=== PATIENT | female | born 1945 | race Caucasian/White ===

== ENCOUNTER 2023-03-05 09:06 | Emergency (ER) | payer MEDICARE, SELFPAY ==
[2023-03-05] VITALS (41 sets, daily range): BP systolic 128–183; BP diastolic 50–140; PULSE 70–83; RESP 12–27; TEMP 36.9; O2SAT 84–98; BMI 25.4
--- NOTE | 2023-03-05 09:30 | CT_ITS ---
The [address] [address] Patient Name: MAIA PETERSON MRN: [facility]:[id number] date: 1945 Sex: F Assigned Patient Location: ER Current Patient Location: ER Accession/Order Number: [id number] Exam Date: 03/05/2023 10:08 Report Date: 03/05/2023 10:31 At the request of: NICOLAS QURESHI Procedure: CT head/brain wo con EXAM: CT head/brain wo con HISTORY: fall - on Plavix COMPARISON: None. TECHNIQUE: Axial noncontrast CT imaging of the head was performed with coronal and sagittal reformats. This CT exam was performed using one or more of the following dose reduction techniques: Automated exposure control, adjustment of the MA and/or kV according to patient size, or use of iterative reconstruction technique. FINDINGS: Calvarium/skull base: No evidence of acute fracture or destructive lesion. Mastoids and middle ears demonstrate no substantial mucosal disease. Bilateral bois forte ocular lens replacements. Paranasal sinuses: No air fluid levels. Brain: No acute intracranial hemorrhage. No acute large vascular territory infarct. Age indeterminate subcentimeter hypodensities are present involving the right caudate and adjacent spicer radiata white matter as well as the left basal ganglia and left anterior limb of the internal capsule. Mild parenchymal volume loss. Dystrophic calcification is present along cortical margin of the right temporal lobe without adjacent mass or edema seen. No mass lesion or mass effect. No hydrocephalus. Intracranial atherosclerosis. CT/CT head/brain wo con IMPRESSION: 1. No acute large vascular territory infarct or acute intracranial hemorrhage. 2. Age-indeterminate subcentimeter areas of hypodensity are present involving the right caudate/spicer radiata as well as the left basal ganglia and left anterior limb of the internal capsule. If there is clinical concern for acute ischemia recommend MRI brain for further evaluation. Electronically authenticated by: YANY RAYA Date: 03/05/2023 10:31
--- NOTE | 2023-03-05 09:44 | ED.GENADUL1 ---
HPI - General Adult General Chief complaint: Weakness Stated complaint: FALL Time Seen by Provider: 03/05/23 09:44 Source: patient Mode of arrival: ambulance Limitations: physical limitation History of Present Illness HPI narrative: this patient's here with her daughter with whom she lives. Her daughter found her new the stairs today. She did not fall down the stairs. She's had dementia and previous strokes. Her daughter thinks that she is more confused than usual although she admits that she does have dementia. She is on Plavix and apparently she probably fell but does not have any pain in her neck at this time. She says she did bump her head. She is coherent about that. She also can identify her daughter and her birthdate spontaneously with no prompting. Related Data Home Medications Medication Instructions Recorded Confirmed clopidogrel 75 mg tablet (Plavix) 75 mg PO DAILY 03/05/23 03/05/23 hydrochlorothiazide 25 mg tablet 25 mg PO DAILY 03/05/23 03/05/23 lisinopril 40 mg tablet 40 mg PO DAILY 03/05/23 03/05/23 metformin 500 mg tablet 500 mg PO BID 03/05/23 03/05/23 Allergies Allergy/AdvReac Type Severity Reaction Status Date / Time No Known Drug Allergies Allergy Verified 03/05/23 09:14 [facility] Social History Smoking status: Former smoker Exam Narrative Exam Narrative: patient's awake alert oriented ?3 follows all simple and complex commands. She says sugar low back is aching and she has diffuse aching in both her legs. Vital signs are stable with no hypotension or hypoxemia. Constitutional her skin is warm and dry she does not appear jaundiced or anemic. There is no carotid bruits no jugular venous distention. Heart rate and rhythm are normal with no arrhythmia. Do not appreciate murmur. Lungs are clear with no wheezes rales or rhonchi. Abdomen is benign. Extremities show trace ankle edema with no evidence flight I phlebitis or deep vein thrombosis. Neurological as noted above , he was sat at the bedside and had no focal neurological deficits. She had no truncal ataxia. Hip and thigh flexors were equal and symmetrical on both sides.she's oriented she's not confused she knows her daughter's birthdate. Constitutional Vital Signs, click to edit/add: Last Vital Signs Temp 98.4 F 03/05/23 09:09 Pulse 74 03/05/23 12:20 Resp 24 03/05/23 12:20 BP 145/99 H 03/05/23 12:01 Pulse Ox 94 L 03/05/23 12:20 O2 Del Method Room Air 03/05/23 09:09 Course Vital Signs Vital signs: Vital Signs Temperature 98.4 F 03/05/23 09:09 Pulse Rate 77 03/05/23 09:09 Respiratory Rate 16 03/05/23 09:09 Blood Pressure 183/84 H 03/05/23 09:09 Pulse Oximetry 96 03/05/23 09:09 Oxygen Delivery Method Room Air 03/05/23 09:09 Temperature 98.4 F 03/05/23 09:09 Pulse Rate 74 03/05/23 12:20 Respiratory Rate 24 03/05/23 12:20 Blood Pressure 145/99 H 03/05/23 12:01 Pulse Oximetry 94 L 03/05/23 12:20 Oxygen Delivery Method Room Air 03/05/23 09:09 Medical Decision Making MDM Narrative Medical decision making narrative: this patient presents with no chest discomfort heaviness or pressure in the head neck or jaw area but are high sensitivity troponins are elevated. The 2nd one was repeated and is going up were. Her CT of head was done and shows no acute findings. There is no focal neurological deficits. Initially we tried contacting the [facility] but there is no bed availability at this time. At the daughter's request we then contacted [facility] emergency room doctor Uri Ayers. He's accepted transfer the case. We do like to start her on heparin at this time. She is stable for transfer Lab Data Labs: Lab Results 03/05/23 03/05/23 03/05/23 Range/Units 10:00 10:30 11:47 WBC 9.8 (4.0-11.0) 10^3/uL RBC 3.89 L (4.20-5.40) 10^6/uL Hgb 11.4 L (12.0-16.0) g/dL Hct 35.2 L (36.0-48.0) % MCV 90.5 (81.0-99.0) fL MCH 29.3 (26.7-34.0) pg MCHC 32.4 (29.9-35.2) g/dL RDW 14.0 (11.0-15.0) % Plt Count 211 (150-450) 10^3/uL MPV 11.4 (9.5-13.5) fL Neut % (Auto) 87.3 H (43.0-75.0) % Lymph % (Auto) 4.5 L (20.5-60.0) % [place] % (Auto) 7.6 (1.7-12.0) % Eos % (Auto) 0.0 L (0.9-7.0) % Baso % (Auto) 0.2 (0.2-2.0) % Neut # (Auto) 8.5 H (1.4-6.5) 10^3/uL Lymph # (Auto) 0.4 L (1.2-3.8) 10^3/uL [place] # (Auto) 0.7 (0.3-0.8) 10^3/uL Eos # (Auto) 0.0 (0.0-0.7) 10^3/uL Baso # (Auto) 0.0 (0.0-0.1) 10^3/uL Abs Immat Gran (auto) 0.04 H (0.00-0.03) 10^3/uL Imm/Tot Granulo (auto) 0.4 (0.0-0.5) % Sodium 136 (136-145) mmol/L Potassium 3.7 (3.5-5.1) mmol/L Chloride 98 (98-107) mmol/L Carbon Dioxide 27.5 (21.0-32.0) mmol/L Anion Gap 14.2 BUN 25.0 H (7.0-18.0) mg/dL Creatinine 1.04 H (0.55-1.02) mg/dL Est GFR ( Amer) >60 (>=60) Est GFR (Non-Af Amer) 51 L (>=60) BUN/Creatinine Ratio 24.0 Glucose 232 H (74-106) mg/dL Calcium 9.0 (8.5-10.1) mg/dL Total Bilirubin 0.8 (0.2-1.0) mg/dL AST 76 H (15-37) U/L ALT 51 (14-59) U/L Alkaline Phosphatase 273 H (46-116) U/L Troponin I High Sens 140.4 H* 179.1 H* (4.0-51.3) pg/mL Total Protein 7.5 (6.4-8.2) g/dL Albumin 3.6 (3.4-5.0) g/dL Globulin 3.9 g/dL Albumin/Globulin Ratio 0.9 Urine Color Lt. yellow (YELLOW) Urine Clarity Clear (CLEAR) Urine pH 6.0 (5.0-9.0) Ur Specific [place] 1.015 (1.005-1.025) Urine Protein Trace (NEG/TRACE) mg/dL Urine Glucose (UA) Negative (NEGATIVE) mg/dL Urine Ketones Negative (NEGATIVE) mg/dL Urine Occult Blood Large A (NEGATIVE) Urine Nitrite Positive A (NEGATIVE) Urine Bilirubin Negative (NEGATIVE) Urine Urobilinogen 0.2 (0.2-1.0) EU/dL Ur Leukocyte Esterase Negative (NEGATIVE) Urine RBC 2-5 A (0-2) #/HPF Urine WBC 2-5 A (NONE SEEN) #/HPF Ur Squamous Epith Cells Rare (NONE/RARE) #/LPF Urine Crystals None seen (None Seen) #/HPF Urine Bacteria Large A (NONE SEEN) #/HPF Urine Casts None seen (NONE SEEN) #/LPF Urine Mucus None seen (NONE SEEN) Ur Culture Indicated? Yes Discharge Plan Discharge Chief Complaint: Weakness Clinical Impression: Non-ST elevated myocardial infarction (non-STEMI) Patient Disposition: [facility] Time of Disposition Decision: 14:19 Mode of Transportation: Life [employer] Prescriptions / Home Meds: No Action lisinopril 40 mg tablet 40 mg PO DAILY hydrochlorothiazide 25 mg tablet 25 mg PO DAILY metformin 500 mg tablet 500 mg PO BID clopidogrel [Plavix] 75 mg tablet 75 mg PO DAILY Referrals: RIZWANA SINGH [Primary Care Provider] - 1 week
--- NOTE | 2023-03-05 09:59 | ECG_ITS ---
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
[2023-03-05 10:08] LABS: Basophils Percent Auto 0.2 % (0.2-2.0); Hematocrit 35.2 % (36.0-48.0); Hemoglobin 11.4 g/dL (12.0-16.0); Immature Granulocytes Abs Auto 0.04 10^3/uL (0.00-0.03); Immature Granulocytes Pct Auto 0.4 % (0.0-0.5); Lymphocytes Absolute Auto 0.4 10^3/uL (1.2-3.8); Lymphocytes Percent Auto 4.5 % (20.5-60.0); Mean Corpuscular HGB Conc 32.4 g/dL (29.9-35.2); Mean Corpuscular Hemoglobin 29.3 pg (26.7-34.0); Mean Corpuscular Volume 90.5 fL (81.0-99.0); Mean Platelet Volume 11.4 fL (9.5-13.5); Monocytes Absolute Auto 0.7 10^3/uL (0.3-0.8); Monocytes Percent Auto 7.6 % (1.7-12.0); Neutrophils Absolute Auto 8.5 10^3/uL (1.4-6.5); Neutrophils Percent Auto 87.3 % (43.0-75.0); Platelet Count 211 10^3/uL (150-450); Red Blood Count 3.89 10^6/uL (4.20-5.40); White Blood Count 9.8 10^3/uL (4.0-11.0)
[2023-03-05 10:26] LABS: Alanine Aminotransferase 51 U/L (14-59); Albumin Globulin Ratio 0.9; Albumin Level 3.6 g/dL (3.4-5.0); Alkaline Phosphatase 273 U/L (46-116); Anion Gap 14.2; Aspartate Amino Transferase 76 U/L (15-37); Bilirubin Total 0.8 mg/dL (0.2-1.0); Carbon Dioxide 27.5 mmol/L (21.0-32.0); Chloride 98 mmol/L (98-107); Estimated GFR (African America >60 (>=60); Estimated GFR (Non-African Ame 51 (>=60); Globulin 3.9 g/dL; Glucose 232 mg/dL (74-106); Potassium 3.7 mmol/L (3.5-5.1); Sodium 136 mmol/L (136-145); Total Protein 7.5 g/dL (6.4-8.2)
[2023-03-05 10:31] LABS: Troponin I High Sensitivity 140.4 pg/mL (4.0-51.3)
[2023-03-05 11:35] LABS: Bilirubin Urine NEGATIVE (NEGATIVE); Blood Urine LARGE (NEGATIVE); Clarity Urine CLEAR (CLEAR); Color Urine LT. YELLOW (YELLOW); Glucose Urine UA NEGATIVE (NEGATIVE); Ketones Urine NEGATIVE (NEGATIVE); Leukocyte Esterase Urine NEGATIVE (NEGATIVE); Nitrite Urine POSITIVE (NEGATIVE); Protein Urine TRACE mg/dL (NEG/TRACE); Specific Gravity Urine 1.015 (1.005-1.025); Urobilinogen Urine 0.2 EU/dL (0.2-1.0)
[2023-03-05] MEDS: KETOROLAC TROMETHAMINE 30 MG/ML VIAL IVP (11:39)
[2023-03-05 11:52] LABS: Urine Microscopic Indicated YES
[2023-03-05 11:55] LABS: Bacteria Urine LARGE #/HPF (NONE SEEN); Cast Seen? NONE SEEN #/LPF (NONE SEEN); Crystals Seen? None Seen #/HPF (None Seen); Mucus Urine NONE SEEN (NONE SEEN); Squamous Epithelial Cell Urine RARE #/LPF (NONE/RARE); Urine Culture Indicated YES
[2023-03-05 12:49] LABS: Troponin I High Sensitivity 179.1 pg/mL (4.0-51.3)
[2023-03-05] MEDS: HEPARIN SODIUM,PORCINE/D5W 25,000 UNIT/500 ML IV.SOLN 18.18 UNIT IV (14:36)
[2023-03-05] MEDS: HEPARIN SODIUM (PORCINE) 5,000 UNIT/ML VIAL 4000 UNIT IV (14:36)
--- NOTE | 2023-03-05 14:50 | ECG_ITS ---
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
== END 2023-03-05 15:17 | disposition short-term general hospital (02) ==
PROVIDERS: Emergency Provider Emergency Medicine Emergency Medical Services; PCP Family Medicine
DX: I21.4 Non-ST elevation (NSTEMI) myocardial infarction (principal); Z79.899 Other long term (current) drug therapy; Z79.84 Long term (current) use of oral hypoglycemic drugs; F03.90 Unspecified dementia, unspecified severity, without behavioral disturbance, psychotic disturbance, mood disturbance, and anxiety; Z79.02 Long term (current) use of antithrombotics/antiplatelets; Z87.891 Personal history of nicotine dependence
CPT/HCPCS: 36415; 70450; 80053; 81001; 84484; 85025; 87077; 87086; 87186; 93005; 96374; 96375; 99285